=== PATIENT | female | born 1950 | race Caucasian/White ===

== ENCOUNTER → 2024-06-28 | Outpatient (CLI) | payer MEDICARE | END | disposition home or self-care (01) | LOC: WHH 08:11 | PROVIDERS: ATTEND Family Medicine | DX: S61.401D Unspecified open wound of right hand, subsequent encounter (principal); L98.498 Non-pressure chronic ulcer of skin of other sites with other specified severity; E78.00 Pure hypercholesterolemia, unspecified; K21.9 Gastro-esophageal reflux disease without esophagitis; G43.909 Migraine, unspecified, not intractable, without status migrainosus; G47.00 Insomnia, unspecified; G50.0 Trigeminal neuralgia; M81.0 Age-related osteoporosis without current pathological fracture; F32.A Depression, unspecified; Z96.641 Presence of right artificial hip joint; Z98.49 Cataract extraction status, unspecified eye; Z90.710 Acquired absence of both cervix and uterus; X58.XXXD Exposure to other specified factors, subsequent encounter | CPT/HCPCS: G0463 ==